=== PATIENT | female | born 1965 | race Two or more races ===

== ENCOUNTER 2020-01-30 12:00 | Outpatient (CLI) | payer BC | END 2020-01-30 23:59 | disposition home or self-care (01) | LOC: RAD 12:00 | DX: M47.812 Spondylosis without myelopathy or radiculopathy, cervical region (principal); M46.02 Spinal enthesopathy, cervical region; M41.86 Other forms of scoliosis, lumbar region | CPT/HCPCS: 72040-TC; 72100-TC ==